=== PATIENT | male | born 1965 | race Caucasian/White ===

== ENCOUNTER 2019-10-31 08:57 | Emergency (ER) | payer OTHER, SELFPAY ==
[2019-10-31 08:58] VITALS: BP 157/92; PULSE 84; RESP 18; TEMP 36.4; O2SAT 99; BMI 30.4
--- NOTE | 2019-10-31 09:19 | EKG12_ITS ---
Test Reason : DIZZINESS Blood Pressure : / mmHG Vent. Rate : 075 BPM Atrial Rate : 075 BPM P-R Int : 164 ms QRS Dur : 108 ms QT Int : 370 ms P-R-T Axes : 021 009 006 degrees QTc Int : 413 ms Normal sinus rhythm Nonspecific ST and T wave abnormality Abnormal ECG Confirmed by ISAÍAS BLANCO ([id number]), website/blog editor COLETTE KINNEY ([id number]) on 11/05/2019 1:08:44 PM Referred By: NEGIN Confirmed By:ISAÍAS BLANCO
--- NOTE | 2019-10-31 09:19 | CT_ITS ---
STUDY: CT BRAIN WITHOUT CONTRAST REASON FOR EXAM: Male, 54 years old. 2 day history of dizziness and vertigo. RADIATION DOSAGE (If Supplied By Facility): CTDIvol = ( 44.99 ) mGy, DLP = ( 812.98 ) mGycm TECHNIQUE: Transaxial CT imaging of the brain was performed without administration of intravenous contrast material. Individualized dose optimization techniques were used for this CT. COMPARISON: No relevant priors. FINDINGS: Normal soft tissue structures. Normal calvarium. Normal size ventricles and extra-axial spaces for the patient''s age. Normal white matter tracts of the cerebral hemispheres. Normal basal ganglia and thalami. Normal brainstem. Normal cerebellum. There is no intracranial hemorrhage. There are no findings of an acute ischemic infarction. Partial opacification of the ethmoid sinuses bilaterally. CT/Brain/Head without Contrast IMPRESSION: Normal unenhanced CT scan of the brain. Partial opacification of the ethmoid sinuses bilaterally. Electronically Signed: Jensen Madden, at 9:54 EST , Service support ,
[2019-10-31] MEDS: Meclizine HCl 25 MG Tablet PO (09:30)
[2019-10-31] MEDS: Ondansetron 4 MG/2 ML Vial IV (09:31)
--- NOTE | 2019-10-31 09:35 | RAD_ITS ---
STUDY: X-RAY CHEST REASON FOR EXAM: Male, 54 years old. Vertigo. TECHNIQUE: PA and lateral views of the chest. COMPARISON: None. FINDINGS: The lungs are clear and expanded. Scattered calcified granulomas. There is no demonstrated pleural abnormality. Normal size heart. Normal mediastinum and mike. Normal visualized pulmonary arteries. Normal visualized aortic arch and descending thoracic aorta. Normal visualized thoracic spine. Normal visualized ribs, clavicles, and shoulders. There is no demonstrated abnormality of the visualized soft tissue structures of the upper abdomen. RAD/Chest PA and Lateral IMPRESSION: Normal x-ray examination of the chest. Scattered calcified granulomas. Electronically Signed: Jensen Madden, at 9:51 EST , Service support ,
[2019-10-31 09:39] LABS: Absolute Lymphocyte Count 0.71 X10^3/uL (0.83-4.51); Absolute Neutrophil Count 3.6 X10^3/uL (2.0-7.7); Basophil# 0.02 X10^3/uL; Basophil% 0.4 % (0-1); Eosinophil# 0.17 X10^3/uL; Eosinophils% 3.4 % (0-5); Hematocrit 48.1 % (40-54); Hemoglobin 16.1 g/dL (13.0-16.5); Lymphocyte # 0.71 X10^3/ul (4.0); Mean Corp Hgb Conc 33.5 g/dL (32-36); Mean Corpuscular Hgb 29.8 pg (27.0-32.0); Mean Corpuscular Volume 89.1 fL (80-94); Mean Platelet Vol. 9.7 fl (6.2-12.0); Monocyte# 0.54 X10^3/uL; Monocyte% 10.7 % (0-10); NRBC Flagged by Analyzer 0 % (0-5); Neutrophil # 3.61 X10^3/uL (2.7-7.7); Neutrophil % 71.3 % (47-70); Platelet Count 224 K/mm3 (150-450); RBC Distribution Width CV 12.8 % (11.6-14.6); RBC Distribution Width SD 41.7 fl (35.1-43.9); White Blood Count 5.1 K/mm3 (4.4-11.0)
[2019-10-31 09:56] LABS: Anion Gap 5 (5-15); BUN 16 mg/dL (7-18); Calcium,Total 8.8 mg/dL (8.5-10.1); Chloride 106 mmol/L (98-107); Creatinine, Serum 1.23 mg/dL (0.70-1.30); EST Glomerular Filtration Rate 65 mL/min (>60); Est Glom Filt Rate - Afr Amer 78 mL/min (>60); Estimated Creatinine Clearance 65.65 ml/min; Glucose 139 mg/dL (74-106); Potassium 4.1 mmol/L (3.5-5.1); Sodium Level 138 mmol/L (136-145)
[2019-10-31 11:03] VITALS: PULSE 69; RESP 12; O2SAT 98
--- NOTE | 2019-10-31 11:20 | ED.VISSUMM ---
- ER Visit Summary Date of Service: 10/31/19 Chief Complaint: Vertigo History of Present Illness: The patient is a [address] Gerard Sawant. He reports at 7:00 this morning while sitting he had the abrupt onset of vertigo. States it is increased with movement or tilting his head. Is much worse when he lays flat or goes from sitting to standing. Is never had anything like this before. Denies any ringing or roaring in his ears. No ear pain. No slurred speech or double vision. He does report that it makes it diaphoretic, nauseated, and has had dry heaves. He denies any headache, numbness, weakness, or other complaints. Physical Examination: Vitals: Stable. Afebrile. General: Well-nourished and well-developed. Head: Normocephalic atraumatic. Neck: Supple, no lymphadenopathy. No JVD. Nontender. Cardiovascular: Regular rate and rhythm. No murmurs. Respiratory: No respiratory distress. Clear to auscultation bilaterally. Abdominal: Soft, nontender, nondistended, normal bowel sounds. No guarding, rebound, or peritoneal signs. Back: Nontender. Extremities: Nontender, no edema. Skin: Normal color, no rash. Neurologic: Alert and oriented ?3. Cranial nerves II through XII are intact. Normal strength and sensation. Normal [id number] and xpfp-dpvb-[id number] bilaterally. Psych: Normal affect. Test Results: EKG is sinus at [address] changes. Chem-7 shows a glucose of 139. CBC shows segmented for 71 lymphocytes 14. Clinical Impression(s) from Imaging Studies Brain CT 10/31/19 09:19 IMPRESSION: Normal unenhanced CT scan of the brain. Partial opacification of the ethmoid sinuses bilaterally. Electronically Signed: Jensen Madden, at 9:54 EST , Service support , Chest X-Ray 10/31/19 09:35 IMPRESSION: Normal x-ray examination of the chest. Scattered calcified granulomas. Electronically Signed: Jensen Madden, at 9:51 EST , Service support , Emergency Department Course and Treatment: Patient was given Antivert p.o. and Zofran IV. He was feeling much improved. We did attempt the [place] maneuver with minimal relief. Treatment Plan: Patient feels well and would like to go home. He will be discharged with Antivert and Zofran. He does understand that there is the possibility of a stroke as the etiology from this he is instructed to return to the emerge department if he is having any worsening symptoms follow-up his primary care physician 1 to 2 days for another exam. Disposition: To home in improved and stable condition. Impression: 1. Benign paroxysmal positional vertigo. This note was generated with [employer] dictation software. It may contain incorrect words, spelling, and punctuation that were not noted in review of the chart prior to signing ED Disposition - Plan for ED Patient: Disposition: Home or Assisted Living Instructions: Benign Positional Vertigo Prescriptions: Meclizine HCl [Antivert] 25 mg PO 4X/DAY PRN PRN #20 tab PRN Reason: Dizziness Prescription Printed Diazepam [Valium] 2 mg PO TID PRN PRN #10 tab PRN Reason: Vertigo Prescription Printed Ondansetron [Zofran Odt] 4 mg PO Q8H PRN PRN #10 tab PRN Reason: Nausea Prescription Printed Referrals: Gerard Sawant III, MD [Primary Care Provider] - 1-2 Days if not improving
== END 2019-10-31 11:50 | disposition home or self-care (01) ==
LOC: ED 09:37
PROVIDERS: Emergency Provider Emergency Medicine; Family Provider Family Medicine; PCP Family Medicine
DX: H81.10 Benign paroxysmal vertigo, unspecified ear (principal)
CPT/HCPCS: 70450; 71046; 80048; 85025; 93005; 96361; 96374; 99285; J7040; J2405

== ENCOUNTER 2022-02-06 09:43 | Emergency (ER) | payer OTHER, SELFPAY ==
[2022-02-06 09:44] VITALS: PULSE 81; RESP 16; TEMP 36.4; O2SAT 99; BMI 30.4
--- NOTE | 2022-02-06 09:56 | RAD_ITS ---
STUDY: X-RAY - RIGHT RADIUS AND ULNA REASON FOR EXAM: Right forearm injury this a.m. TECHNIQUE: 2 view(s) of the forearm. COMPARISON: None. FINDINGS: There is soft tissue swelling. There is a mildly displaced mildly comminuted fracture of the mid ulnar diaphysis. There is a mildly displaced transverse fracture of the mid radial diaphysis. RAD/Forearm 2 Views IMPRESSION: Fractures of the radial and ulnar diaphyses. Electronically Signed: Ricky Rudolph MD at 11:18 EDT ,
--- NOTE | 2022-02-06 09:57 | EDS_ITS ---
HPI History of Present Illness Chief Complaint: Upper Extremity Injury Informant: patient Occured/Mechanism Mechanism/Context: Yes blunt trauma Onset/Context/Timing Onset: Today and Hours Context: Sudden Onset Timing: Continuous Quality of Pain: Sharp Current Severity: Moderate Maximum Severity: Severe Associated Symptoms Associated Symptoms: Negative for Parasthesia, Weakness and Loss of Funtion Narrative Narrative: 56-year old male injured his right forearm when it was hit by a piece of farm equipment.. This is his right forearm and is right-hand dominant. This occurred an hour ago. He was taken to an urgent care did not feel comfortable treating this injury so the same the emergency department. He denies any other complaints. No prior history or surgery to his right arm. Prior similar symptoms: No Recent Illness/Hospitalization: No PFSH PFSH Medical History no medical history no medical history Home Medications diazepam 2 mg PO TID PRN PRN #10 tab 10/31/19 [Rx Last Taken Unknown] meclizine 25 mg PO 4X/DAY PRN PRN #20 tab 10/31/19 [Rx Last Taken Unknown] ondansetron 4 mg PO Q8H PRN PRN #10 tab 10/31/19 [Rx Last Taken Unknown] hydrocodone-acetaminophen 1 tab PO Q4H PRN 4 Days #20 tab 02/06/22 [Rx Last Taken Unknown] Allergy/AdvReac Type Severity Reaction Status Date / Time amoxicillin Allergy Hives Verified 02/06/22 09:47 Penicillins Allergy Hives Verified 02/06/22 09:47 Social History Smoking Status: Never smoker ROS ROS ED ROS Narrative Denies recent illness. Review of Systems ROS Unobtainable: Denies due to encephalopathy Constitutional Constitutional ED: Denies fever(s) Eyes Eyes: Denies change in vision ENT ENT ED: Denies ear pain Cardiovascular Cardiovascular: Denies chest pain Respiratory/Chest Respiratory/Chest: Denies dyspnea Gastrointestinal Gastrointestinal: Denies abdominal pain, diarrhea, nausea or vomiting Genitourinary Genitourinary ED: Denies dysuria Musculoskeletal Musculoskeletal: Denies myalgias Integumentary Denies rash Neurologic Neurologic: Denies headache(s) Psychiatric Psychiatric: Denies depression Endocrine Endocrinology: Denies polyuria Hematologic/Lymphatic Hematologic/Lymphatic: Denies easy bruising Allergic/Immunologic Allergic/Immunologic ED: Denies urticaria EXAM Physical Exam Narrative Exam Narrative: Obese male no acute distress vital signs stable afebrile. His right foot arm is in a sling. H EENT exam unremarkable atraumatic. Pupils are reactive light. C-spine nontender. Trachea midline. Lungs clear to auscultation bilaterally. Heart regular rate and rhythm rate about 80 no murmur. Chest nontender. Abdomen soft nontender. Pelvic girdle intact. Both lower extremities are nontender with normal range of motion and motor strength. Left upper extremity is nontender 5/5 clinical transformation specialist strength. Right shoulder and elbow are nontender. Right forearm midportion has a deformity. Skins intact. Palpable radial pulse. He is able to wiggle his fingers has normal cap refill and touch sensation. Is obvious tenderness and deformity to the right mid forearm. Neurologically he is awake and alert with no focal motor deficits. Const Vital Signs: 02/06/22 09:44 Temperature 97.5 F L Temperature Source Temporal Pulse Rate 81 Respiratory Rate 16 Pulse Ox 99 Oxygen Delivery Method Room Air Positive well nourished and well developed; Negative for cachectic, contractures or unkempt General Appearance ED: well developed and NAD; Negative for unkempt, cachectic, contractures, cyanotic or diaphoretic Nutritional Appearance: Negative for cachectic HEENT Reports moist mucous membranes normocephalic and atraumatic Eyes PERRL and EOMs intact bilaterally Neck full ROM and supple General: Negative for tenderness Chest Wall inspection of chest normal and palpation of chest normal Resp normal respiratory effort and clear to auscultation bilaterally Effort and Inspection: Negative for pain with movement Auscultation: Negative for rales or rhonchi Cardio regular rate, regular rhythm, S1 normal heart sound, S2 normal heart sound and no murmurs GI non-tender, non-distended and no masses Auscultation: normoactive bowel sounds Palpation: soft; Negative for tender, guarding or rebound tenderness present Back/Spine no CVA tenderness General Back: Negative for CVA tenderness Cervical Spine: Negative for cervical spine tenderness Thoracic Spine / Upper Back: Negative for thoracic spinal tenderness Lumbar Spine / Lower Back: Negative for lumbar spinal tenderness Extremity normal to inspection and full ROM Extremity Narrative: Except deformity midportion right forearm. Tenderness. Decreased range of motion. Right wrist nontender. Palpable radial pulse. Normal touch sensation and cap refill of the hand. General Extremety ED: Negative for edema General Extremity: Negative for edema Neuro oriented x3 and moves all extremities Sensorium / Orientation: oriented to person, oriented to place and oriented to time Motor Exam: strength 5/5 throughout Psych mental status grossly normal Appearance: Negative for unkempt Mood & Affect: Negative for depressed or tearful Skin Lesions: no lesions Rashes: no rashes Trauma: no lacerations or abrasions; Negative for abrasion or laceration MDM MDM MDM Narrative Medical decision making narrative: 56-year-old pzfys-mopa-[id number] male suspect forearm fracture. Skins intact. Right hand is neurovascularly intact distal to the wound. X-rays are being obtained. Will be given IV morphine and Zofran for pain. Patient was treated with morphine for pain. Pain improved. I went over his x- rays with him. He was placed in a short arm well-padded Ortho-Glass AP splint. He tolerated that well. To be placed in a sling. Discharged home follow-up with orthopedics. Prescription for [facility] 20 no refill. Radiography Diagnostic Testing: Right forearm x-ray 2 views interpreted by myself and the radiologist shows midshaft radius and midshaft ulna fractures. The ulnar fracture is comminuted. Procedures Upper Extremity Splints Upper Extremity Splint: Orthoglass and Sling Splint Fabrication: Fabricated Location: Right Discharge Plan Triage Chief Complaint: Upper Extremity Injury ED Provider: Tin Leyva Dx/Rx/DC Orders Clinical Impression: Closed fracture of right forearm Instructions: ED Forearm Fx Wo Redu Prescriptions: New hydrocodone-acetaminophen 5-325 mg tablet 1 tab PO Q4H PRN (Reason: pain) 4 Days Qty: 20 RF: 0 No Action meclizine 25 MG tablet 25 mg PO 4X/DAY PRN PRN (Reason: Dizziness) Qty: 20 RF: 0 diazepam 2 MG tablet 2 mg PO TID PRN PRN (Reason: Vertigo) Qty: 10 RF: 0 ondansetron 4 MG tablet 4 mg PO Q8H PRN PRN (Reason: Nausea) Qty: 10 RF: 0 Primary Care Provider: Care Physician,No Primary Referrals: Campos Johnson MD [STAFF PHYSICIAN] - As soon as possible Care Physician,No Primary [Primary Care Provider] - Activity Restrictions/Additional Instructions: Call the orthopedic doctor, Dr. Lance Elizabeth, today to get an appointment to be seen this week. They may need to do surgery on these fractures. That will be up to his decision once he sees your x-rays and evaluate you. Keep your splint on. Keep the splint dry and clean. Ice and elevate as much as possible the next 3 days. Motrin for pain and inflammation. You had a prescription sent to your pharmacy of [facility] which is a pain medication. Plenty of fluids to prevent constipation and possibly stool softener as needed if you are taking the pain medication. Disposition Disposition: Home, Self Care
[2022-02-06] MEDS: morphine 8 MG/ML Syringe IV (10:41)
[2022-02-06] MEDS: Ondansetron 4 MG/2 ML Vial IV (10:41)
[2022-02-06 11:44] VITALS: BP 132/78; PULSE 80; RESP 16; O2SAT 98
== END 2022-02-06 12:03 | disposition home or self-care (01) ==
PROVIDERS: Emergency Provider Emergency Medicine; Visit Provider Emergency Medicine
DX: S52.301A Unspecified fracture of shaft of right radius, initial encounter for closed fracture (principal); S52.201A Unspecified fracture of shaft of right ulna, initial encounter for closed fracture; W22.8XXA Striking against or struck by other objects, initial encounter; Y93.9 Activity, unspecified; Y92.9 Unspecified place or not applicable
CPT/HCPCS: 29125; 73090; 96374; 96375; 99284; A4216; J2405

== ENCOUNTER 2022-02-10 13:50 | Outpatient (CLI) | payer OTHER, SELFPAY ==
--- NOTE | 2022-02-10 13:53 | EKG12_ITS ---
Test Reason : PRE-OP Blood Pressure : / mmHG Vent. Rate : 078 BPM Atrial Rate : 078 BPM P-R Int : 148 ms QRS Dur : 086 ms QT Int : 372 ms P-R-T Axes : 027 013 011 degrees QTc Int : 424 ms Normal sinus rhythm Normal ECG Confirmed by HOWARD TERRY, TAI ([id number]), publications editor ELLIS MORGAN ([id number]) on 02/13/2022 10:52:48 AM Referred By: Archie Ferrera Confirmed By:TAI LAWRENCE MD
[2022-02-10 15:08] LABS: Hematocrit 50.1 % (40-54); Hemoglobin 17.4 g/dL (13.0-16.5); Mean Corp Hgb Conc 34.7 g/dL (32-36); Mean Corpuscular Hgb 30.7 pg (27.0-32.0); Mean Corpuscular Volume 88.5 fL (80-94); Mean Platelet Vol. 10.3 fl (6.2-12.0); Platelet Count 222 K/mm3 (150-450); RBC Distribution Width CV 12.8 % (11.6-14.6); RBC Distribution Width SD 41.2 fl (35.1-43.9); Red Blood Count 5.66 M/mm3 (4.6-6.2); White Blood Count 5.7 K/mm3 (4.4-11.0)
[2022-02-10 15:25] LABS: Anion Gap 2 (5-15); BUN 20 mg/dL (7-18); BUN/Creat Ratio 15.6 RATIO (10-20); Calcium,Total 9.2 mg/dL (8.5-10.1); Chloride 106 mmol/L (98-107); Creatinine, Serum 1.28 mg/dL (0.70-1.30); EST Glomerular Filtration Rate 61 mL/min (>60); Est Glom Filt Rate - Afr Amer 74 mL/min (>60); Glucose 114 mg/dL (74-106); Sodium Level 138 mmol/L (136-145)
== END 2022-02-10 23:59 | disposition home or self-care (01) ==
LOC: PSN 13:51
PROVIDERS: Referring Provider Physician Assistant; Visit Provider Physician Assistant
DX: Z01.818 Encounter for other preprocedural examination (principal); Z01.810 Encounter for preprocedural cardiovascular examination
CPT/HCPCS: 36415; 80048; 85027; 93005